=== PATIENT | male | born 1985 | race Caucasian/White ===

== ENCOUNTER 2022-05-26 21:48 | Emergency (ER) | payer OTHER ==
[~2022-05-26] VITALS: Ht 175.3 cm; Wt 79.0 kg
[2022-05-26] MEDS ORDERED: KETOROLAC 30MG/ML VIAL IV STA (22:44)
[2022-05-26 23:42] VITALS: BP 121/88
[2022-05-27 00:12] LABS: BASOPHILS % 0.4 % (0.0-2.0); EOSINOPHILS % 1.6 % (0.0-5.0); HEMATOCRIT. 45.7 % (42.0-52.0); HEMOGLOBIN. 15.3 g/dL (14.0-18.0); LYMPHOCYTES % 18.8 % (20.0-50.0); MEAN CORPUSCULAR HEMOGLOBIN 29.1 pg (28.0-32.0); MEAN PLATELET VOLUME 10.1 fl (7.4-10.4); MONOCYTES % 5.1 % (2.0-8.0); NEUTROPHILS % 74.1 % (40.0-76.0); PLATELET 252 x1000/uL (130-400); RED BLOOD CELL COUNT 5.25 mill/uL (4.7-6.1); RED CELL DISTRIBUTION WIDTH 14.6 % (11.6-14.6)
[2022-05-27 00:16] LABS: CHLORIDE 103 mEq/L (98-107)
[2022-05-27] MEDS ORDERED: NAPR-681 PO (02:06)
[2022-05-27] MEDS ORDERED: T3 PO (02:06)
[2022-05-27] MEDS ORDERED: IOHEXOL-300 100 ML BOTTLE ONE (06:41)
== END 2022-05-27 02:29 | disposition home or self-care (01) ==
LOC: ER 21:48
DX: S20.212A Contusion of left front wall of thorax, initial encounter (principal); M25.512 Pain in left shoulder; M25.562 Pain in left knee; M25.552 Pain in left hip; D35.02 Benign neoplasm of left adrenal gland; I10 Essential (primary) hypertension; V43.52XA Car driver injured in collision with other type car in traffic accident, initial encounter; Y93.89 Activity, other specified; Y92.488 Other paved roadways as the place of occurrence of the external cause
CPT/HCPCS: 36415; 71045; 73030; 73060; 73562; 74177; 80053; 85025; 96374; 99285; J1885; Q9967